=== PATIENT | female | born 1955 | race Two or more races ===

== ENCOUNTER 2018-08-19 23:51 | Inpatient (IN) | payer MEDICARE, MEDICAID ==
[~2018-08-19] VITALS: Ht 162.6 cm; Wt 51.3 kg
[2018-08-20] VITALS (10 sets, daily range): BP systolic 93–168; BP diastolic 54–83
[2018-08-20] MEDS ORDERED: SODIUM CHLORIDE 0.9% 1,000 ML IV ONE (00:45)
[2018-08-20 01:17] LABS: BASOPHILS % 0.7 % (0.0-2.0); EOSINOPHILS % 2.6 % (0.0-5.0); HEMATOCRIT. 28.8 % (36.0-48.0); HEMOGLOBIN. 9.5 g/dL (12.0-16.0); LYMPHOCYTES % 9.8 % (20.0-50.0); MEAN CORPUSCULAR HEMOGLOBIN 29.9 pg (28.0-32.0); MEAN CORPUSCULAR VOLUME 90.8 fL (81.0-99.0); MEAN PLATELET VOLUME 8.5 fl (7.4-10.4); MONOCYTES % 6.9 % (2.0-8.0); PLATELET 228 x1000/uL (130-400); RED BLOOD CELL COUNT 3.17 mill/uL (4.2-5.4)
[2018-08-20 01:22] LABS: CHLORIDE 95 mEq/L (98-107)
[2018-08-20 01:24] LABS: D-DIMER 3.36 mg/L FEU (<0.50); INR 1.2; PROTHROMBIN TIME 11.7 sec (9.1-11.1)
[2018-08-20] MEDS ORDERED: ONDANSETRON HCL 4MG/2ML INJ IV PRN (10:00)
[2018-08-20] MEDS ORDERED: ACETAMINOPHEN 325MG TABLET PO PRN (10:00)
[2018-08-20] MEDS ORDERED: IPRATROPIUM/ALBUTEROL 0.5-3(2.5)MG/3ML NEB HHN PRN (10:00)
[2018-08-20] MEDS: DIPHENHYDRAMINE 50MG/ML VIAL IV PRN ×2 (11:07→23:49)
[2018-08-20] MEDS: HYDROCODONE/ACETAMINOPHEN 5/325MG TABLET PO PRN ×2 (11:08→19:53)
[2018-08-20] MEDS ORDERED: SIMV20TA6 PO (11:29)
[2018-08-20] MEDS ORDERED: CLON0.1T PO (11:29)
[2018-08-20] MEDS ORDERED: SEVE800T8 PO (11:29)
[2018-08-20] MEDS ORDERED: CITA10SO PO (11:29)
[2018-08-20] MEDS ORDERED: AMLO5TAB88 PO (11:29)
[2018-08-20] MEDS: HYDROMORPHONE HCL/PF 2MG/ML CPJ IV PRN ×2 (18:33→23:49)
[2018-08-20] MEDS ORDERED: EPOETIN ALFA 4000UNITS/ML VIAL SUBCUT SCH (21:00)
[2018-08-20] MEDS: ATORVASTATIN CALCIUM 20MG TABLET PO SCH (21:20)
[2018-08-21] VITALS (12 sets, daily range): BP systolic 101–159; BP diastolic 50–97
[2018-08-21] MEDS: DIPHENHYDRAMINE 50MG/ML VIAL IV PRN (06:12)
[2018-08-21 06:34] LABS: BASOPHILS % 0.6 % (0.0-2.0); EOSINOPHILS % 3.1 % (0.0-5.0); HEMATOCRIT. 31.5 % (36.0-48.0); HEMOGLOBIN. 10.3 g/dL (12.0-16.0); LYMPHOCYTES % 14.4 % (20.0-50.0); MEAN CORPUSCULAR HEMOGLOBIN 30.2 pg (28.0-32.0); MEAN CORPUSCULAR VOLUME 92.6 fL (81.0-99.0); MEAN PLATELET VOLUME 8.7 fl (7.4-10.4); MONOCYTES % 8.6 % (2.0-8.0); NEUTROPHILS % 73.3 % (40.0-76.0); PLATELET 170 x1000/uL (130-400); RED CELL DISTRIBUTION WIDTH 18.4 % (11.6-14.6)
[2018-08-21 07:58] LABS: PHOSPHORUS 2.9 mg/dL (2.5-4.9)
[2018-08-21] MEDS ORDERED: SODIUM BICARBONATE 4% (2.4MEQ) 5ML VIAL IV ONE (10:55)
[2018-08-21] MEDS: HYDROMORPHONE HCL/PF 2MG/ML CPJ IV PRN ×2 (13:40→18:45)
[2018-08-21] MEDS: MORPHINE SULFATE 15MG TABLET SR PO SCH (20:26)
[2018-08-21] MEDS ORDERED: PREDNISONE 20MG TABLET PO SCH (21:00)
[2018-08-21] MEDS: ATORVASTATIN CALCIUM 20MG TABLET PO SCH (21:28)
[2018-08-22] VITALS (22 sets, daily range): BP systolic 114–165; BP diastolic 69–94
[2018-08-22] MEDS ORDERED: PREDNISONE 20MG TABLET PO SCH ×2 (03:00→09:00)
[2018-08-22] MEDS: HYDROMORPHONE HCL/PF 2MG/ML CPJ IV PRN (04:07)
[2018-08-22] MEDS: DIPHENHYDRAMINE 50MG/ML VIAL IV PRN ×2 (04:07→15:45)
[2018-08-22 06:23] LABS: HEMOGLOBIN. 9.6 g/dL (12.0-16.0); MEAN CORPUSCULAR HEMOGLOBIN 29.6 pg (28.0-32.0); MEAN CORPUSCULAR VOLUME 92.4 fL (81.0-99.0); MEAN PLATELET VOLUME 8.5 fl (7.4-10.4); PLATELET 173 x1000/uL (130-400); RED BLOOD CELL COUNT 3.25 mill/uL (4.2-5.4); RED CELL DISTRIBUTION WIDTH 17.6 % (11.6-14.6)
[2018-08-22 06:27] LABS: PHOSPHORUS 3.5 mg/dL (2.5-4.9)
[2018-08-22] MEDS ORDERED: CLINDAMYCIN 600 MG in DEXTROSE 5% WATER 50 ML IV NR (08:30)
[2018-08-22] MEDS ORDERED: ALTEPLASE 2MG/VIAL ITC NR (08:30)
[2018-08-22] MEDS ORDERED: DIPHENHYDRAMINE 50MG CAPSULE PO SCH (09:00)
[2018-08-22] MEDS: MORPHINE SULFATE 15MG TABLET SR PO SCH ×2 (09:07→20:13)
[2018-08-22] MEDS ORDERED: LIDOCAINE HCL 1% 20ML VIAL (Pyxis) INJ ONE (09:33)
[2018-08-22] MEDS ORDERED: IODIXANOL 320MG/ML 100 ML BOTTLE IV ONE (09:33)
[2018-08-22] MEDS ORDERED: HEPARIN 1000 UNITS/ML 10ML ONE (09:34)
[2018-08-22 09:54] LABS: PLATELET ESTIMATE NORMAL
[2018-08-22] MEDS ORDERED: FENTANYL CITRATE/PF 50MCG/ML 2ML VIAL ONE (10:04)
[2018-08-22] MEDS ORDERED: FENTANYL CITRATE/PF 50MCG/ML 2ML VIAL IV ONE (10:30)
[2018-08-22] MEDS ORDERED: FENTANYL CITRATE/PF 50MCG/ML 2ML VIAL IV SCH (11:00)
[2018-08-22] MEDS ORDERED: CLONIDINE 0.1MG TABLET PO SCH (14:00)
[2018-08-22] MEDS ORDERED: DIPHENHYDRAMINE 25MG CAPSULE PO PRN (16:00)
[2018-08-22] MEDS: HYDROCODONE/ACETAMINOPHEN 5/325MG TABLET PO PRN (18:07)
[2018-08-22] MEDS: ATORVASTATIN CALCIUM 20MG TABLET PO SCH (20:13)
[2018-08-22] MEDS ORDERED: AMLODIPINE 5MG TABLET PO SCH (21:00)
== END 2018-08-22 21:23 | disposition home or self-care (01) | DRG 252 ==
LOC: ER 23:53 → 5EST 08-20 05:39 → EDBEDREQ 08-20 05:59 → EDBEDREQTM 08-20 05:59 → ENRESERV 08-20 07:17
PROVIDERS: ADMIT Internal Medicine; ATTEND Internal Medicine
PROC: 5A1D70Z Performance of Urinary Filtration, Intermittent, Less than 6 Hours Per Day (ICD-10-PCS; principal; 2018-08-22)
PROC: 03773ZZ Dilation of Right Brachial Artery, Percutaneous Approach (ICD-10-PCS; 2018-08-22)
PROC: 057A3ZZ Dilation of Left Brachial Vein, Percutaneous Approach (ICD-10-PCS; 2018-08-22)
PROC: 0W9B3ZZ Drainage of Left Pleural Cavity, Percutaneous Approach (ICD-10-PCS; 2018-08-22)
PROC: 3E05317 Introduction of Other Thrombolytic into Peripheral Artery, Percutaneous Approach (ICD-10-PCS; 2018-08-22)
PROC: B5181ZZ Fluoroscopy of Superior Vena Cava using Low Osmolar Contrast (ICD-10-PCS; 2018-08-22)
PROC: B51N1ZZ Fluoroscopy of Left Upper Extremity Veins using Low Osmolar Contrast (ICD-10-PCS; 2018-08-22)
PROC: B51W1ZZ Fluoroscopy of Dialysis Shunt/Fistula using Low Osmolar Contrast (ICD-10-PCS; 2018-08-22)
PROC: B31J1ZZ Fluoroscopy of Left Upper Extremity Arteries using Low Osmolar Contrast (ICD-10-PCS; 2018-08-22)
DX: T82.868A Thrombosis due to vascular prosthetic devices, implants and grafts, initial encounter (principal); N18.6 End stage renal disease; J96.01 Acute respiratory failure with hypoxia; J18.8 Other pneumonia, unspecified organism; E43 Unspecified severe protein-calorie malnutrition; E87.1 Hypo-osmolality and hyponatremia; I13.11 Hypertensive heart and chronic kidney disease without heart failure, with stage 5 chronic kidney disease, or end stage renal disease; D68.59 Other primary thrombophilia; J98.19 Other pulmonary collapse; I31.3 Pericardial effusion (noninflammatory); C34.90 Malignant neoplasm of unspecified part of unspecified bronchus or lung; I69.354 Hemiplegia and hemiparesis following cerebral infarction affecting left non-dominant side; Z68.1 Body mass index [BMI] 19.9 or less, adult; J90 Pleural effusion, not elsewhere classified; T82.858A Stenosis of other vascular prosthetic devices, implants and grafts, initial encounter; I25.10 Atherosclerotic heart disease of native coronary artery without angina pectoris; Z66 Do not resuscitate; M94.0 Chondrocostal junction syndrome [Tietze]; R73.03 Prediabetes; E78.5 Hyperlipidemia, unspecified; D64.9 Anemia, unspecified; R59.0 Localized enlarged lymph nodes; E87.8 Other disorders of electrolyte and fluid balance, not elsewhere classified; D63.8 Anemia in other chronic diseases classified elsewhere; Y83.2 Surgical operation with anastomosis, bypass or graft as the cause of abnormal reaction of the patient, or of later complication, without mention of misadventure at the time of the procedure; Y92.89 Other specified places as the place of occurrence of the external cause; Z91.041 Radiographic dye allergy status; Z88.8 Allergy status to other drugs, medicaments and biological substances; Z87.891 Personal history of nicotine dependence; Z83.3 Family history of diabetes mellitus; Z82.49 Family history of ischemic heart disease and other diseases of the circulatory system; Z99.2 Dependence on renal dialysis; Z95.5 Presence of coronary angioplasty implant and graft; Z88.6 Allergy status to analgesic agent; Z79.899 Other long term (current) drug therapy
CPT/HCPCS: 32555; 36415; 36905; 71045; 71250; 80048; 80061; 83735; 83880; 84100; 84439; 84443; 84484; 85379; 93005; 93306; 93970; 96360; 97162; 99285; C1725; C1766; C1769; C1887; J0885; J1170; J1200; J1644; J2997; J3010; J3490; J7030; J7050; J7060; J7512; Q0163; Q9967